=== PATIENT | female | born 1970 | race African-American/Black ===

== ENCOUNTER 2016-06-29 06:45 | Emergency (ER) | payer OTHER ==
[~2016-06-29] VITALS: Ht 170.2 cm; Wt 100.0 kg
[~2016-06-29 06:45] MED LIST: FERR325T PO; OVCOTAB PO; PHEN25IN PR; TAB-TAB PO
[2016-06-29 06:47] VITALS: BP 170/74; PULSE 87; RESP 15; TEMP 98.3; O2SAT 97
[2016-06-29 07:26] VITALS: BP 133/76; PULSE 82; RESP 18; O2SAT 99
--- NOTE | 2016-06-29 07:38 | PD ---
HPI Chief Complaint: Pain: Acute or Chronic Time Seen by Provider: 07:32 Travel History International Travel<30 days: No Contact w/Intl Traveler<30days: No Traveled to known affect area: No History of Present Illness HPI The patient is a 46-year-old Mary female who presents to the emergency department from [place], [place], for multiple complaints. The patient notes a 2 day history of chest pain which is substernal to left-sided, constant, heavy, and alleviated with Aleve. The pain has been constant, is present at rest and with activity, and is not accompanied with any shortness of breath. The patient also complains of cramping and numbness to the third, fourth, fifth digit of the left hand. The patient also complains of a headache located over the top of the head which started this morning after awakening. She also complains of mild epigastric discomfort and distention, however, has been eating without difficulty. Her last bowel movement was yesterday, normal per her report. She has been passing gas without difficulty. She does have a history of tubal ligation in the past and is currently on control for a history of heavy vaginal bleeding. The patient also complains of pain located over the left great toe without any swelling or edema. The patient denies any trauma to the left foot. The patient's primary physician is located in [place], however, she did not see her physician over the last several days for her multiple complaints. PFSH Past Medical History Anemia: Yes Asthma: Yes Cancer: No Cardiovascular Problems: No Endocrine: No Genitourinary: No Immune Disorder: No Implanted Vascular Access Dvce: No Musculoskeletal: No Neurologic: No Reproductive: No Respiratory: Yes (asthma) ?: Not : 4 Para: 4 Miscarriage: 0 : 0 Tubal Ligation: Yes Past Surgical History Abdominal Surgery: No Cardiac Surgery: No Ear Surgery: No Endocrine Surgery: No Eye Surgery: No Genitourinary Surgery: No Gynecologic Surgery: Yes (TUBAL LIGATION) Neurologic Surgery: No Oral Surgery: No Thoracic Surgery: No Other Surgery: Yes (CERVICAL BIOPSY) Social History Alcohol Use: No Tobacco Use: No Substance Use: No Allergies-Medications (Allergen,Severity, Reaction): Coded Allergies: No Known Allergies (Verified , 06/29/16) Reported Meds & Prescriptions Reported Meds & Active Scripts Active Review of Systems Except as stated in HPI: all other systems reviewed are Neg General / Constitutional: No: Fever HENT: Positive: Headaches Cardiovascular: Positive: Chest Pain or Discomfort Respiratory: No: Shortness of Breath Gastrointestinal: Positive: Abdominal Pain (epigastric discomfort and bloating) , No: Nausea, Vomiting, Constipation, Changes in Bowel Habits Musculoskeletal: Positive: Cramping, Pain Neurologic: Positive: Headache, Paresthesia Physical Exam Narrative GENERAL: Awake, alert, nontoxic-appearing 46-year-old female who appears her stated age and is in no acute respiratory distress. SKIN: Warm and dry. HEAD: Atraumatic. Normocephalic. EYES: Pupils equal and round. 3 mm bilateral and reactive. EOMs are intact. ENT: No nasal bleeding or discharge. Mucous membranes pink and moist. NECK: Trachea midline. No JVD. CARDIOVASCULAR: Regular rate and rhythm. No murmur appreciated. RESPIRATORY: No accessory muscle use. Clear to auscultation. Breath sounds equal bilaterally. GASTROINTESTINAL: Abdomen soft, mild epigastric tenderness. No rebound tenderness, guarding, or rigidity. No obvious tympany noted. MUSCULOSKELETAL: No obvious deformities. No clubbing. No cyanosis. No edema. NEUROLOGICAL: Awake and alert. No obvious cranial nerve deficits. Motor grossly within normal limits. Normal speech. PSYCHIATRIC: Appropriate mood and affect; insight and judgment normal. Data Data Last Documented VS Vital Signs Date Time Temp Pulse Resp B/P Pulse Ox O2 Delivery O2 Flow Rate FiO2 06/29/16 09:30 78 16 136/77 98 Room Air 06/29/16 06:47 98.3 Orders Electrocardiogram (06/29/16 07:32) Ckmb (Isoenzyme) Profile (06/29/16 07:32) Complete Blood Count With Diff (06/29/16 07:32) Comprehensive Metabolic Panel (06/29/16 07:32) Magnesium (Mg) (06/29/16 07:32) Prothrombin Time / Inr (Pt) (06/29/16 07:32) Act Partial Throm Time (Ptt) (06/29/16 07:32) Troponin I (06/29/16 07:32) Lipase (06/29/16 07:32) Chest, Single Ap (06/29/16 07:32) Ecg Monitoring (06/29/16 07:32) Bilateral Bp Monitoring (06/29/16 07:32) Iv Access Insert/Monitor (06/29/16 07:32) Oximetry (06/29/16 07:32) Oxygen Administration (06/29/16 07:32) Aspirin Chew (Aspirin Chew) (06/29/16 07:45) Morphine Inj (Morphine Inj) (06/29/16 07:45) Sodium Chloride 0.9% Flush (Ns Flush) (06/29/16 07:45) Ondansetron Inj (Zofran Inj) (06/29/16 07:45) CKMB (06/29/16 07:40) CKMB% (06/29/16 07:40) Troponin I (06/29/16 10:40) Labs Laboratory Tests Test 06/29/16 06/29/16 07:40 10:35 White Blood Count 7.4 TH/MM3 Red Blood Count 4.42 MIL/MM3 Hemoglobin 10.6 GM/DL Hematocrit 33.6 % Mean Corpuscular Volume 76.0 FL Mean Corpuscular Hemoglobin 24.0 PG Mean Corpuscular Hemoglobin 31.6 % Concent Red Cell Distribution Width 15.4 % Platelet Count 240 TH/MM3 Mean Platelet Volume 8.5 FL Neutrophils (%) (Auto) 48.6 % Lymphocytes (%) (Auto) 37.9 % Monocytes (%) (Auto) 10.9 % Eosinophils (%) (Auto) 1.7 % Basophils (%) (Auto) 0.9 % Neutrophils # (Auto) 3.6 TH/MM3 Lymphocytes # (Auto) 2.8 TH/MM3 Monocytes # (Auto) 0.8 TH/MM3 Eosinophils # (Auto) 0.1 TH/MM3 Basophils # (Auto) 0.1 TH/MM3 CBC Comment AUTO DIFF Differential Comment AUTO DIFF CONFIRMED Platelet Estimate NORMAL Platelet Morphology Comment ENLARGED Prothrombin Time 9.6 SEC Prothromb Time International 0.9 RATIO Ratio Activated Partial 26.1 SEC Thromboplast Time Sodium Level 138 MEQ/L Potassium Level 3.6 MEQ/L Chloride Level 104 MEQ/L Carbon Dioxide Level 27.5 MEQ/L Anion Gap 7 MEQ/L Blood Urea Nitrogen 8 MG/DL Creatinine 0.80 MG/DL Estimat Glomerular Filtration 94 ML/MIN Rate Random Glucose 82 MG/DL Calcium Level 8.2 MG/DL Magnesium Level 2.2 MG/DL Total Bilirubin 0.2 MG/DL Aspartate Amino Transf 11 U/L (AST/SGOT) Alanine Aminotransferase 10 U/L (ALT/SGPT) Alkaline Phosphatase 99 U/L Total Creatine Kinase 159 U/L Creatine Kinase MB 0.9 NG/ML Troponin I LESS THAN 0.02 LESS THAN 0.02 NG/ML NG/ML Total Protein 7.3 GM/DL Albumin 3.0 GM/DL Lipase 139 U/L MDM Medical Decision Making Medical Screen Exam Complete: Yes Emergency Medical Condition: Yes Medical Record Reviewed: Yes Interpretation(s) EKG reveals normal sinus rhythm with a rate of 77. Wavy baseline in V1. Inverted T waves noted in lead 3. Laboratory Tests Test 06/29/16 07:40 White Blood Count 7.4 TH/MM3 Red Blood Count 4.42 MIL/MM3 Hemoglobin 10.6 GM/DL Hematocrit 33.6 % Mean Corpuscular Volume 76.0 FL Mean Corpuscular Hemoglobin 24.0 PG Mean Corpuscular Hemoglobin 31.6 % Concent Red Cell Distribution Width 15.4 % Platelet Count 240 TH/MM3 Mean Platelet Volume 8.5 FL Neutrophils (%) (Auto) 48.6 % Lymphocytes (%) (Auto) 37.9 % Monocytes (%) (Auto) 10.9 % Eosinophils (%) (Auto) 1.7 % Basophils (%) (Auto) 0.9 % Neutrophils # (Auto) 3.6 TH/MM3 Lymphocytes # (Auto) 2.8 TH/MM3 Monocytes # (Auto) 0.8 TH/MM3 Eosinophils # (Auto) 0.1 TH/MM3 Basophils # (Auto) 0.1 TH/MM3 CBC Comment AUTO DIFF Differential Comment AUTO DIFF CONFIRMED Platelet Estimate NORMAL Platelet Morphology Comment ENLARGED Prothrombin Time 9.6 SEC Prothromb Time International 0.9 RATIO Ratio Activated Partial 26.1 SEC Thromboplast Time Sodium Level 138 MEQ/L Potassium Level 3.6 MEQ/L Chloride Level 104 MEQ/L Carbon Dioxide Level 27.5 MEQ/L Anion Gap 7 MEQ/L Blood Urea Nitrogen 8 MG/DL Creatinine 0.80 MG/DL Estimat Glomerular Filtration 94 ML/MIN Rate Random Glucose 82 MG/DL Calcium Level 8.2 MG/DL Magnesium Level 2.2 MG/DL Total Bilirubin 0.2 MG/DL Aspartate Amino Transf 11 U/L (AST/SGOT) Alanine Aminotransferase 10 U/L (ALT/SGPT) Alkaline Phosphatase 99 U/L Total Creatine Kinase 159 U/L Creatine Kinase MB 0.9 NG/ML Troponin I LESS THAN 0.02 NG/ML Total Protein 7.3 GM/DL Albumin 3.0 GM/DL Lipase 139 U/L Last Impressions Chest X-Ray 06/29/16 0732 Signed Impressions: Service Date/Time: Wednesday, June 29, 2016 07:42 - CONCLUSION: No acute disease. Kvng uRiz MD Second troponin is less than 0.02. Differential Diagnosis Differential diagnosis includes ACS, hypokalemia, electrolyte abnormality, pancreatitis, GERD, esophageal spasm, arthralgia, osteoarthritis, gout, tension headache, intracranial hemorrhage, subarachnoid hemorrhage. Narrative Course IV was established, labs are drawn and sent, and the patient was placed on cardiac telemetry monitoring and continuous pulse oximetry monitoring. EKG was ordered and interpreted. Chest x-ray was obtained. The patient was administered aspirin, morphine, and Zofran. The patient's chest x-rays unremarkable. The patient's lipase and LFTs are normal. Troponin is negative. The patient's symptoms are very atypical, patient has no known risk factors. Therefore, second troponin will be ordered at that 3 hour level. The patient does have multiple complaints, no obvious explanation that explains the headache , chest pain, cramping of the hands, or toe pain. The patient is stable for outpatient follow-up with her primary physician, she will be provided a copy of chest x-ray and labs at discharge. The patient was reevaluated at 10:15 AM, she still had mild headache, I offered Toradol intravenously, however, she declined. The patient's second troponin is negative. The patient will be discharged home with a copy of labs and chest x- ray report. Diagnosis Primary Impression: Atypical chest pain Additional Impressions: Cephalgia Qualified Code: R51 - Acute nonintractable headache, unspecified headache type Foot pain, left Patient Instructions: General Instructions Additional Instructions: Please provide the patient a copy of her labs and chest x-ray report at discharge. Follow-up with your primary physician. Return if symptoms worsen or progress. Med/Other Pt SpecificInfo: Prescription(s) given Scripts Ibuprofen 600 Mg Hig639 Mg PO Q6H PRN (Pain/Inflammation) #20 TAB Ref 0 Prov:Jaleel Medina MD 06/29/16 Disposition: 01 DISCHARGE HOME Condition: Stable Jaleel Medina MD Jun 29, 2016 07:38
[2016-06-29] MEDS ORDERED: SODIUM CHLORIDE 0.9% FLUSH 5 ML FLUSH IVF PRN (07:45)
[2016-06-29] MEDS ORDERED: ONDANSETRON HCL 4 MG/2 ML VIAL IV PUSH ONE (07:45)
[2016-06-29] MEDS ORDERED: ASPIRIN 81 MG CHEW TAB PO ONE (07:45)
[2016-06-29] MEDS ORDERED: MORPHINE SULFATE 4 MG/ML INJ IV PUSH ONE (07:45)
--- NOTE | 2016-06-29 08:16 | RADRPT ---
EXAM DATE/TIME: 06/29/2016 07:42 [facility] COMPARISON: No previous studies available for comparison. INDICATIONS : Short of Breath and Chest Pressure MEDICAL HISTORY : Asthma SURGICAL HISTORY : None. ENCOUNTER: Initial ACUITY: 1 day PAIN SCORE: 4/10 LOCATION: Bilateral chest FINDINGS: A single view of the chest demonstrates the lungs to be symmetrically aerated without evidence of mas s, infiltrate or effusion. The cardiomediastinal contours are unremarkable. Osseous structures are intact. CONCLUSION: No acute disease. Kvng Ruiz MD on June 29, 2016 at 8:14 Board Certified Radiologist. This report was verified electronically.
[2016-06-29 08:24] LABS: AUTOMATED NEUTROPHIL # 3.6 TH/MM3 (1.8-7.7); BASOPHIL # 0.1 TH/MM3 (0-0.2); BASOPHIL % 0.9 % (0.0-2.0); EOSINOPHIL # 0.1 TH/MM3 (0-0.4); EOSINOPHIL % 1.7 % (0.0-4.0); HEMATOCRIT 33.6 % (35.0-46.0); LYMPH % 37.9 % (9.0-44.0); LYMPHOCYTE # 2.8 TH/MM3 (1.0-4.8); MEAN CORPUSCULAR HGB CONC 31.6 % (32.0-36.0); MONO % 10.9 % (0.0-8.0); NEUT % 48.6 % (16.0-70.0); PLATELET COUNT 240 TH/MM3 (150-450); RED BLOOD COUNT 4.42 MIL/MM3 (4.00-5.30); RED CELL DISTRIBUTION WIDTH 15.4 % (11.6-17.2); WHITE BLOOD COUNT 7.4 TH/MM3 (4.0-11.0)
[2016-06-29 08:26] LABS: HEMO FLAGS AUTO DIFF
[2016-06-29 08:30] VITALS: BP_SYST 133; BP_SYST 136; BP_DIAS 67; BP_DIAS 77; PULSE 78; RESP 18; O2SAT 97
[2016-06-29 08:31] LABS: APTT (PATIENT) 26.1 SEC (24.3-30.1); INTERNATIONAL NORMALIZED RATIO 0.9 RATIO; PROTHROMBIN TIME - PATIENT 9.6 SEC (9.8-11.6)
[2016-06-29 08:50] LABS: ANION GAP 7 MEQ/L (5-15); AST (GOT) 11 U/L (15-37); BICARBONATE 27.5 MEQ/L (21.0-32.0); BLOOD UREA NITROGEN 8 MG/DL (7-18); CHLORIDE 104 MEQ/L (98-107); GLOMERULAR FILTRATION RATE 94 ML/MIN (>89); MAGNESIUM 2.2 MG/DL (1.5-2.5); POTASSIUM 3.6 MEQ/L (3.5-5.1); SODIUM (NA) 138 MEQ/L (136-145)
[2016-06-29 08:55] LABS: ALKALINE PHOSPHATASE 99 U/L (45-117); ALT (GPT) 10 U/L (10-53); CREATINE KINASE 159 U/L (26-192); TOTAL BILIRUBIN ADULT 0.2 MG/DL (0.2-1.0)
[2016-06-29 09:06] LABS: PLATELET ESTIMATE SMEAR NORMAL (NORMAL); PLATELET MORPHOLOGY ENLARGED (NORMAL); SCAN/DIFF AUTO DIFF CONFIRMED
[2016-06-29 09:07] LABS: CKMB 0.9 NG/ML (0.5-3.6)
--- NOTE | 2016-06-29 09:19 | EKG ---
Date Performed: 06/29/2016 Time Performed: 07:47:23 PTAGE: 46 years EKG: Marked Baseline artifact is present. I would repeat the EKG given the poor quality. PREVIOUS TRACING : 02/08/2013 13.36 DOCTOR: Brandon Holly Interpretating Date/Time 06/29/2016 09:18:36
[2016-06-29 09:30] VITALS: BP 136/77; PULSE 78; RESP 16; O2SAT 98
[2016-06-29] MEDS ORDERED: IBUP-232 PO (11:33)
[2016-06-29 12:07] VITALS: BP 114/62
== END 2016-06-29 12:09 | disposition home or self-care (01) ==
LOC: NEPE 06:45
DX: R07.89 Other chest pain (principal); R51 Headache; M79.675 Pain in left toe(s); R10.13 Epigastric pain; R14.0 Abdominal distension (gaseous)
CPT/HCPCS: 71010; 80053; 82550; 82552; 83690; 83735; 84484; 85025; 85610; 85730; 93005; 96374; 96375; 99285; J2270; J2405

== ENCOUNTER 2017-12-21 11:10 | Observation (INO) ==
--- NOTE | 2017-12-21 12:05 | ED ---
HPI General Chief Complaint: Extremity Injury, Upper Stated Complaint: pain in right shoulder & left arm Time Seen by Provider: 12/21/17 11:48 Source: patient and RN notes reviewed Mode of arrival: ambulatory Limitations: no limitations History of Present Illness HPI narrative: 47-year-old female presents to the emergency department for evaluation of left arm pain and left-sided chest pain. Patient states she started with left arm pain approximately 1 week ago. She states it started sharp and radiated down the arm. She states that then she started noticing some left-sided discomfort. Patient denies any injury. She states the pain is not worse with movement. She denies any history of similar pain in the past. She denies shortness of breath. She also complains of right shoulder pain for 2 weeks. States she had a knot in her right shoulder and this pain is worse when she moves her right arm. Patient reports history of asthma. She is on albuterol and control pills. She denies any cardiac history. Current pain is 8/10. Moderate severity. Patient does state that Tylenol will help her left arm pain. MD complaint: chest pain (Arm pain) Complete Quality Measures for STEMI Alert Patients Onset (ago): week(s) (1) Duration: constant Onset: during rest Pain location: other (left arm) Severity: moderate Severity scale (1-10): 8 Quality: aching and sharp Pain radiation: other Relieving factors: medication-other (Tylenol) Exacerbating factors: nothing Treatments prior to arrival chest pain: none Related Data Home Medications Medication Instructions Recorded Confirmed Control 12/21/17 Allergies Allergy/AdvReac Type Severity Reaction Status Date / Time No Known Allergies Allergy Uncoded 06/29/16 07:28 Review of Systems ROS: all other systems reviewed are negative PMFSH Medical History Medical History Asthma (Acute) Disc degeneration, lumbar (Acute) Surgical History Surgical History H/O tubal ligation (Acute) Social History Social History Substance History: No History of Abuse Smoking Status: Never smoker How Often Do You Have a Drink Containing Alcohol: Monthly or less Recent Travel in [facility] within the Last 8 Weeks: No Recent Out of Country Travel within the Last 8 Weeks: No Immunization History Tetanus Immunization: >5 Years Exam Narrative Exam Narrative: GENERAL: Well-nourished, well-developed female patient, afebrile SKIN: Focused skin assessment warm/dry. HEAD: Normocephalic. Atraumatic EYES: No scleral icterus. No injection or drainage. NECK: Supple, trachea midline. No JVD or lymphadenopathy. CARDIOVASCULAR: Regular rate and rhythm without murmurs, gallops, or rubs. Bilateral radial and pedal pulses 2+ RESPIRATORY: Breath sounds equal bilaterally. No accessory muscle use. Lung sounds are clear to auscultation GASTROINTESTINAL: Abdomen soft, non-tender, nondistended. MUSCULOSKELETAL: No cyanosis, or edema. Pain in the left arm is not reproducible with palpation or range of motion. Pain right shoulder is easily reproduced with palpation and lifting the right arm. BACK: Nontender without obvious deformity. No CVA tenderness. NEUROLOGICAL: Awake and alert. Cranial nerves II through XII intact. Motor and sensory grossly within normal limits. Five out of 5 muscle strength in all muscle groups. Normal speech. Course Initial Documented Vital Signs Temperature 98.7 F 12/21/17 11:19 Pulse Rate 90 12/21/17 11:19 Respiratory Rate 16 12/21/17 11:19 Blood Pressure 175/80 H 12/21/17 11:19 Pulse Oximetry 99 12/21/17 11:19 Last Documented Vital Signs Temperature 98.7 F 12/21/17 11:19 Pulse Rate 87 12/21/17 11:20 Respiratory Rate 19 12/21/17 11:20 Blood Pressure 125/79 12/21/17 11:20 Pulse Oximetry 98 12/21/17 12:10 Medical Decision Making PALMER Attestation PALMER supervised visit: Yes Attestation: I, Dr. Galan, have reviewed the advance practice practitioner's documentation and am in agreement, met with the patient face to face, made the diagnosis, and the medical decision making was done by me. *My assessment and Findings: Patient had some atypical chest discomfort. Workup here is negative. Patient will be a 23-hour observation on telemetry in the chest pain center to rule out cardiac cause of her symptoms. MDM Narrative Medical decision making narrative: 47-year-old female presents to the emergency department for evaluation of left arm pain for 1 week. She also states she has some left chest "discomfort". She also has right shoulder pain for 2 weeks that is reproducible with movement. She does appear well on exam. Due to nonspecific symptoms, cardiac workup should be done. IV access obtained. EKG, CBC, CMP, CK, troponin, magnesium, d-dimer, chest x-ray are ordered and pending. Patient is given aspirin 162 mg p.o. EKG sinus rhythm, heart rate 78 with inverted T waves in lead III. CBC shows no acute abnormality. CMP shows no acute abnormality. Magnesium is 2.2. CK is 124. Troponin is less than 0.02. D-dimer is 0.22. Chest x-ray is negative. I discussed the case my attending physician, Dr. Galan, who reviewed EKG. he recommends chest pain center admission. I discussed this with the patient who states she does not want to stay. She is thinking about at this time. Patient has agreed to be admitted for chest pain center Medical Screen Exam Complete: Yes Emergency Medical Condition: Yes Differential Diagnosis Differential Diagnosis: cervical radiculopathy vs. ACS vs. muscle strain vs. muscle spasm vs. PE Lab Data Result diagrams: 12/21/17 12:08 12/21/17 12:08 POC Results POC Urine Results Negative Lab Results 12/21/17 12/21/17 12/21/17 Range/Units 12:08 12:08 12:08 WBC 6.2 (4.0-11.0) th/mm3 RBC 4.53 (4.00-5.30) mil/mm3 Hgb 11.0 L (11.6-15.3) gm/dL Hct 35.2 (35.0-46.0) % MCV 77.8 L (80.0-100.0) fL MCH 24.2 L (27.0-34.0) pg MCHC 31.1 L (32.0-36.0) % RDW 15.8 (11.6-17.2) % Plt Count 248 (150-450) th/mm3 MPV 7.8 (7.0-11.0) fL Neut % (Auto) 55.1 (16.0-70.0) % Lymph % (Auto) 33.8 (9.0-44.0) % Grant % (Auto) 8.8 H (0.0-8.0) % Eos % (Auto) 1.2 (0.0-4.0) % Baso % (Auto) 1.1 (0.0-2.0) % Neut # (Auto) 3.4 (1.8-7.7) th/mm3 Lymph # (Auto) 2.1 (1.0-4.8) th/mm3 Grant # (Auto) 0.5 (0.0-0.9) th/mm3 Eos # (Auto) 0.1 (0.0-0.4) th/mm3 Baso # (Auto) 0.1 (0.0-0.2) th/mm3 WBC Differential . Differential Comment Auto diff final D-Dimer Quant (PE/DVT) 0.22 (0.00-0.50) mg/L FEU Sodium 142 (136-145) meq/L Potassium 4.2 (3.5-5.1) meq/L Chloride 107 (98-107) meq/L Carbon Dioxide 28.6 (21.0-32.0) meq/L Anion Gap 6 (5-15) meq/L BUN 8 (7-18) mg/dL Creatinine 0.77 (0.50-1.00) mg/dL Estimated GFR Greater than 89 (>89) mL/min Random Glucose 85 (74-106) mg/dL Calcium 8.3 L (8.5-10.1) mg/dL Magnesium (1.5-2.5) mg/dL Total Bilirubin 0.3 (0.2-1.0) mg/dL AST 10 L (15-37) U/L ALT 11 (10-53) U/L Alkaline Phosphatase 114 (45-117) U/L Total Creatine Kinase (26-192) U/L CK-MB (CK-2) (0.5-3.6) ng/mL Troponin I Less than 0.02 L (0.02-0.05) ng/mL Total Protein 7.6 (6.4-8.2) g/dL Albumin 3.3 L (3.4-5.0) g/dL 12/21/17 Range/Units 12:08 WBC (4.0-11.0) th/mm3 RBC (4.00-5.30) mil/mm3 Hgb (11.6-15.3) gm/dL Hct (35.0-46.0) % MCV (80.0-100.0) fL MCH (27.0-34.0) pg MCHC (32.0-36.0) % RDW (11.6-17.2) % Plt Count (150-450) th/mm3 MPV (7.0-11.0) fL Neut % (Auto) (16.0-70.0) % Lymph % (Auto) (9.0-44.0) % Grant % (Auto) (0.0-8.0) % Eos % (Auto) (0.0-4.0) % Baso % (Auto) (0.0-2.0) % Neut # (Auto) (1.8-7.7) th/mm3 Lymph # (Auto) (1.0-4.8) th/mm3 Grant # (Auto) (0.0-0.9) th/mm3 Eos # (Auto) (0.0-0.4) th/mm3 Baso # (Auto) (0.0-0.2) th/mm3 WBC Differential Differential Comment D-Dimer Quant (PE/DVT) (0.00-0.50) mg/L FEU Sodium (136-145) meq/L Potassium (3.5-5.1) meq/L Chloride (98-107) meq/L Carbon Dioxide (21.0-32.0) meq/L Anion Gap (5-15) meq/L BUN (7-18) mg/dL Creatinine (0.50-1.00) mg/dL Estimated GFR (>89) mL/min Random Glucose (74-106) mg/dL Calcium (8.5-10.1) mg/dL Magnesium 2.2 (1.5-2.5) mg/dL Total Bilirubin (0.2-1.0) mg/dL AST (15-37) U/L ALT (10-53) U/L Alkaline Phosphatase (45-117) U/L Total Creatine Kinase 124 (26-192) U/L CK-MB (CK-2) Less than 1.0 (0.5-3.6) ng/mL Troponin I (0.02-0.05) ng/mL Total Protein (6.4-8.2) g/dL Albumin (3.4-5.0) g/dL Imaging Data Radiologist's impression: Chest X-Ray 12/21/17 11:58 CONCLUSION: Negative examination. Discharge Plan Discharge Disposition Patient Disposition: 30 Still Patient Discharge Details Diagnosis: Chest pain Physicians Team ED Provider: Andrew Galan ED Midlevel Provider: Zo Boyd Attending Provider: Rosendo Armstrong Status ED Status: Admitted Observation Patient
[2017-12-21 12:18] LABS: Baso # (Auto) 0.1 th/mm3 (0.0-0.2); Baso % (Auto) 1.1 % (0.0-2.0); Eos # (Auto) 0.1 th/mm3 (0.0-0.4); Eos % (Auto) 1.2 % (0.0-4.0); Hematocrit 35.2 % (35.0-46.0); Lymph # (Auto) 2.1 th/mm3 (1.0-4.8); Lymph % (Auto) 33.8 % (9.0-44.0); Mean Corpuscular HGB Conc 31.1 % (32.0-36.0); Mean Corpuscular Hemoglobin 24.2 pg (27.0-34.0); Mean Corpuscular Volume 77.8 fL (80.0-100.0); Mean Platelet Volume 7.8 fL (7.0-11.0); Mono # (Auto) 0.5 th/mm3 (0.0-0.9); Mono % (Auto) 8.8 % (0.0-8.0); Neut # (Auto) 3.4 th/mm3 (1.8-7.7); Neut % (Auto) 55.1 % (16.0-70.0); Platelet Count 248 th/mm3 (150-450); Red Blood Count 4.53 mil/mm3 (4.00-5.30); Red Cell Distribution Width 15.8 % (11.6-17.2); White Blood Count 6.2 th/mm3 (4.0-11.0)
--- NOTE | 2017-12-21 12:33 | XR ---
EXAM DATE: 12/21/2017 12:25 PM EDT AGE/SEX: 47 years / Female INDICATIONS: Right shoulder pain for 2 weeks, left shoulder pain for one week radiating down left ar m. CLINICAL DATA: This is the patient's initial encounter. Patient reports that signs and symptoms have been present for 2 weeks and indicates a pain score of 5/10. MEDICAL/SURGICAL HISTORY: Asthma. None. COMPARISON: June 2016 . FINDINGS: A single AP view of the chest demonstrates the lungs to be symmetrically aerated without evidence of mass, infiltrate or effusion. The cardiomediastinal contours are unremarkable. Osseous structures a re intact. CONCLUSION: Negative examination. Electronically signed by: Yeyo Rodríguez MD 12/21/2017 12:31 PM EDT
[2017-12-21 12:38] LABS: Alanine Aminotransferase 11 U/L (10-53); Albumin 3.3 g/dL (3.4-5.0); Anion Gap 6 meq/L (5-15); Aspartate Aminotransferase 10 U/L (15-37); Blood Urea Nitrogen 8 mg/dL (7-18); Calcium 8.3 mg/dL (8.5-10.1); Carbon Dioxide 28.6 meq/L (21.0-32.0); Chloride 107 meq/L (98-107); Glomerular Filtration Rate Greater Than 89 mL/min (>89); Glucose,Random 85 mg/dL (74-106); Magnesium 2.2 mg/dL (1.5-2.5); Potassium 4.2 meq/L (3.5-5.1); Sodium 142 meq/L (136-145)
[2017-12-21 12:40] LABS: Creatine Kinase 124 U/L (26-192)
[2017-12-21 12:42] LABS: Alkaline Phosphatase 114 U/L (45-117); Total Protein 7.6 g/dL (6.4-8.2)
--- NOTE | 2017-12-21 14:20 | P.HPCA ---
History of Present Illness Primary Care Physician: Levi oGnzalez [facility] - History History Provided By: Patient - Medical History Medical History: Medical History (Last Updated 12/21/17 @ 11:28 by Brenda Sheikh RN) Asthma Disc degeneration, lumbar - Surgical History Surgical History: Surgical History (Last Updated 12/21/17 @ 11:28 by Brenda Sheikh RN) H/O tubal ligation - Tobacco History Smoking Status: Never smoker - Alcohol History How Often Do You Have a Drink Containing Alcohol: Monthly or less - Substance Use History Substance History: No History of Abuse - Travel History Recent Travel in the [facility] Within the Last 8 Weeks: No Recent Travel Out of the Country Within the Last 8 Weeks: No - Immunization History Tetanus Immunization: >5 Years Medications and Allergies Active Medications: Active Medications Sodium Chloride (Ns Flush) 2 ml IV.FLUSH UNSCH PRN PRN Reason: FLUSH AFTER USING IV ACCESS Sodium Chloride (Ns Flush) 2 ml IV.FLUSH BID LETTY Allergies Allergy/AdvReac Type Severity Reaction Status Date / Time No Known Allergies Allergy Uncoded 06/29/16 07:28 Home Medications Medication Instructions Recorded Confirmed Type Control 12/21/17 History Exam Vital signs: Vital Signs 12/21/17 11:19 12/21/17 11:20 12/21/17 12:10 Temperature 98.7 F Pulse Rate 90 87 Respiratory Rate 16 19 Blood Pressure 175/80 H 125/79 Pulse Oximetry 99 98 98 Intake & Output 12/20/17 12/21/17 12/21/17 18:59 06:59 18:59 Weight 106.594 kg Results 12/21/17 12:08 12/21/17 12:08 Cardiac Enzymes 12/21/17 12/21/17 Range/Units 12:08 12:08 AST 10 L (15-37) U/L CK-MB (CK-2) Less than 1.0 (0.5-3.6) ng/mL Troponin I Less than 0.02 L (0.02-0.05) ng/mL CBC 12/21/17 Range/Units 12:08 WBC 6.2 (4.0-11.0) th/mm3 RBC 4.53 (4.00-5.30) mil/mm3 Hgb 11.0 L (11.6-15.3) gm/dL Hct 35.2 (35.0-46.0) % Plt Count 248 (150-450) th/mm3 Neut # (Auto) 3.4 (1.8-7.7) th/mm3 Lymph # (Auto) 2.1 (1.0-4.8) th/mm3 [place] # (Auto) 0.5 (0.0-0.9) th/mm3 Eos # (Auto) 0.1 (0.0-0.4) th/mm3 Baso # (Auto) 0.1 (0.0-0.2) th/mm3 Comprehensive Metabolic Panel 12/21/17 Range/Units 12:08 Sodium 142 (136-145) meq/L Potassium 4.2 (3.5-5.1) meq/L Chloride 107 (98-107) meq/L Carbon Dioxide 28.6 (21.0-32.0) meq/L BUN 8 (7-18) mg/dL Creatinine 0.77 (0.50-1.00) mg/dL Calcium 8.3 L (8.5-10.1) mg/dL AST 10 L (15-37) U/L ALT 11 (10-53) U/L Alkaline Phosphatase 114 (45-117) U/L Total Protein 7.6 (6.4-8.2) g/dL Albumin 3.3 L (3.4-5.0) g/dL Intake and Output 12/20/17 12/21/17 12/21/17 22:59 06:59 14:59 Other: Weight 106.594 kg Patient Weight 12/22/17 06:59 Weight 106.594 kg Caprini VTE Risk Assessment Caprini Risk Assessment Model: Point Value = 1 Point Value = 2 Point Value = 3 Point Value = 5 Age 41-60 Minor surgery BMI > 25 kg/m2 Swollen legs Varicose veins or History of unexplained or recurrent spontaneous Oral contraceptives or hormone replacement Sepsis (< 1 month) Serious lung disease, including pneumonia (< 1 month) Abnormal pulmonary function Acute myocardial infarction Congestive heart failure (< 1 month) History of inflammatory bowel disease Medical patient at bed rest Age 61-74 Arthroscopic surgery Major open surgery (> 45 min) Laparoscopic surgery (> 45 min) Malignancy Confined to bed (> 72 hours) Immobilizing plaster cast Central venous access Age >= 75 History of VTE Family history of VTE Factor V Leiden Prothrombin [id number] Lupus anticoagulant Anticardiolipin antibodies Elevated serum homocysteine Heparin-induced thrombocytopenia Other congenital or acquired thrombophilia Stroke (< 1 month) Elective arthroplasty Hip, pelvis, or leg fracture Acute spinal cord injury (< 1 month) Prophylaxis Regimen: Total Risk Factor Score Risk Level Prophylaxis Regimen 0-1 Low Early ambulation 2 Moderate Order ONE of the following: *Sequential Compression Device (SCD) *Heparin 5000 units SQ BID 3-4 Higher Order ONE of the following medications: *Heparin 5000 units SQ TID *Enoxaparin/Lovenox 40 mg SQ daily (WT < 150 kg, CrCl > 30 mL/min) *Enoxaparin/Lovenox 30 mg SQ daily (WT < 150 kg, CrCl > 10-29 mL/min) *Enoxaparin/Lovenox 30 mg SQ BID (WT < 150 kg, CrCl > 30 mL/min) AND/OR *Sequential Compression Device (SCD) 5 or more Highest Order ONE of the following medications: *Heparin 5000 units SQ TID (Preferred with Epidurals) *Enoxaparin/Lovenox 40 mg SQ daily (WT < 150 kg, CrCl > 30 mL/min) *Enoxaparin/Lovenox 30 mg SQ daily (WT < 150 kg, CrCl > 10-29 mL/min) *Enoxaparin/Lovenox 30 mg SQ BID (WT < 150 kg, CrCl > 30 mL/min) AND *Sequential Compression Device (SCD)
--- NOTE | 2017-12-21 14:44 | P.HPCA ---
History of Present Illness Service: Chest pain center Primary Care Physician: Levi Gonzalez Chief Complaint: Left and right arm pain and weakness History of Present Illness: Very pleasant 47-year-old moderately obese black lady who works as a SENIOR TECHNICAL ANALYST at [employer] presents with complaints of left arm and shoulder pain with some radiation into the left upper chest. This began a couple weeks ago when she was sitting in a reclining chair and use both of her arms to push herself up in the chair. Subsequently she noted burning pain in her left arm and after that some slight pain in her right arm as well. This pain has persisted constantly since that time although it does fluctuate somewhat in severity from about 5 out of 10 to an 8 or 9 out of 10. It is not precipitated by exertion or relieved by rest but it can be relieved if she positioned herself carefully in bed so that her back is straight. She also notices that positioning her pillow in certain ways does relieve some of the discomfort. Along with the pain she has some numbness and weakness of her left arm and hand. She is also been having trouble with her low back and recently was evaluated with an MRI and told that she has this degeneration and some spinal stenosis but they did not evaluate her upper spine. She has no other associated symptoms no diaphoresis nausea shortness of breath no other precipitating or relieving factors and no radiation. 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 She has been employed with her current employer for 13 years. She has no other significant medical problems although she was evaluated previously for some anemia from [employer]OL [employer]OR bleeding but this appears to be stabilized at this time and she has had no further problems. Her only risk factor for coronary disease appears to be her weight. - Diagnosis (1) Upper extremity pain (2) Asthma (3) Chest pain Review of Systems All other systems reviewed negative except as stated in HPI ON LICENSE OF [facility] - History History Provided By: Patient - Medical History Medical History: Medical History (Last Updated 12/21/17 @ 11:28 by Brenda Sheikh RN) Asthma Disc degeneration, lumbar - Surgical History Surgical History: Surgical History (Last Updated 12/21/17 @ 11:28 by Brenda Sheikh RN) H/O tubal ligation - Tobacco History Smoking Status: Never smoker - Alcohol History How Often Do You Have a Drink Containing Alcohol: Monthly or less - Substance Use History Substance History: No History of Abuse - Travel History Recent Travel in the [place] Within the Last 8 Weeks: No Recent Travel Out of the Country Within the Last 8 Weeks: No - Immunization History Tetanus Immunization: >5 Years Medications and Allergies Active Medications: Active Medications Sodium Chloride (Ns Flush) 2 ml IV.FLUSH UNSCH PRN PRN Reason: FLUSH AFTER USING IV ACCESS Sodium Chloride (Ns Flush) 2 ml IV.FLUSH BID LETTY Allergies Allergy/AdvReac Type Severity Reaction Status Date / Time No Known Allergies Allergy Uncoded 06/29/16 07:28 Home Medications Medication Instructions Recorded Confirmed Type Control 12/21/17 History Exam Vital signs: Vital Signs 12/21/17 11:19 12/21/17 11:20 12/21/17 12:10 Temperature 98.7 F Pulse Rate 90 87 Respiratory Rate 16 19 Blood Pressure 175/80 H 125/79 Pulse Oximetry 99 98 98 Intake & Output 12/20/17 12/21/17 12/21/17 18:59 06:59 18:59 Weight 106.594 kg Narrative: Awake alert black moderately obese female Skin warm and dry Head normocephalic atraumatic wearing a week but here reported as normal texture Eyes PERRLA EOMI sclera clear conjunctiva unremarkable Mouth mucous membranes moist and well papillated no lesions Neck supple no JVD masses nodes or bruits Chest diminished breath sounds due to her obesity but auscultation otherwise unremarkable with no rales wheezes or rhonchi Cardiovascular PMI is not palpable there is a regular rhythm no gallops rubs or murmurs Abdomen is obese soft nontender no guarding rebound no hepatosplenomegaly is noted Extremities no clubbing cyanosis or edema no pain swelling or heat Neurologic cranial nerves are intact however upper left extremity is weak compared to right. Right is 5 out of 5 left 4 out of 5 strength proximally and distally. Psychologically she appears to be intact and normal with normal affect mood Results 12/21/17 12:08 12/21/17 12:08 Cardiac Enzymes 12/21/17 12/21/17 Range/Units 12:08 12:08 AST 10 L (15-37) U/L CK-MB (CK-2) Less than 1.0 (0.5-3.6) ng/mL Troponin I Less than 0.02 L (0.02-0.05) ng/mL CBC 12/21/17 Range/Units 12:08 WBC 6.2 (4.0-11.0) th/mm3 RBC 4.53 (4.00-5.30) mil/mm3 Hgb 11.0 L (11.6-15.3) gm/dL Hct 35.2 (35.0-46.0) % Plt Count 248 (150-450) th/mm3 Neut # (Auto) 3.4 (1.8-7.7) th/mm3 Lymph # (Auto) 2.1 (1.0-4.8) th/mm3 [place] # (Auto) 0.5 (0.0-0.9) th/mm3 Eos # (Auto) 0.1 (0.0-0.4) th/mm3 Baso # (Auto) 0.1 (0.0-0.2) th/mm3 Comprehensive Metabolic Panel 12/21/17 Range/Units 12:08 Sodium 142 (136-145) meq/L Potassium 4.2 (3.5-5.1) meq/L Chloride 107 (98-107) meq/L Carbon Dioxide 28.6 (21.0-32.0) meq/L BUN 8 (7-18) mg/dL Creatinine 0.77 (0.50-1.00) mg/dL Calcium 8.3 L (8.5-10.1) mg/dL AST 10 L (15-37) U/L ALT 11 (10-53) U/L Alkaline Phosphatase 114 (45-117) U/L Total Protein 7.6 (6.4-8.2) g/dL Albumin 3.3 L (3.4-5.0) g/dL Intake and Output 12/20/17 12/21/17 12/21/17 22:59 06:59 14:59 Other: Weight 106.594 kg Patient Weight 12/22/17 06:59 Weight 106.594 kg EKG interpretations - EKG EKG results cardiology: WNL Caprini VTE Risk Assessment Caprini VTE Risk Assessment: No/Low Risk (score <= 1) Caprini Risk Assessment Model: Point Value = 1 Point Value = 2 Point Value = 3 Point Value = 5 Age 41-60 Minor surgery BMI > 25 kg/m2 Swollen legs Varicose veins or History of unexplained or recurrent spontaneous Oral contraceptives or hormone replacement Sepsis (< 1 month) Serious lung disease, including pneumonia (< 1 month) Abnormal pulmonary function Acute myocardial infarction Congestive heart failure (< 1 month) History of inflammatory bowel disease Medical patient at bed rest Age 61-74 Arthroscopic surgery Major open surgery (> 45 min) Laparoscopic surgery (> 45 min) Malignancy Confined to bed (> 72 hours) Immobilizing plaster cast Central venous access Age >= 75 History of VTE Family history of VTE Factor V Leiden Prothrombin [id number] Lupus anticoagulant Anticardiolipin antibodies Elevated serum homocysteine Heparin-induced thrombocytopenia Other congenital or acquired thrombophilia Stroke (< 1 month) Elective arthroplasty Hip, pelvis, or leg fracture Acute spinal cord injury (< 1 month) Prophylaxis Regimen: Total Risk Factor Score Risk Level Prophylaxis Regimen 0-1 Low Early ambulation 2 Moderate Order ONE of the following: *Sequential Compression Device (SCD) *Heparin 5000 units SQ BID 3-4 Higher Order ONE of the following medications: *Heparin 5000 units SQ TID *Enoxaparin/Lovenox 40 mg SQ daily (WT < 150 kg, CrCl > 30 mL/min) *Enoxaparin/Lovenox 30 mg SQ daily (WT < 150 kg, CrCl > 10-29 mL/min) *Enoxaparin/Lovenox 30 mg SQ BID (WT < 150 kg, CrCl > 30 mL/min) AND/OR *Sequential Compression Device (SCD) 5 or more Highest Order ONE of the following medications: *Heparin 5000 units SQ TID (Preferred with Epidurals) *Enoxaparin/Lovenox 40 mg SQ daily (WT < 150 kg, CrCl > 30 mL/min) *Enoxaparin/Lovenox 30 mg SQ daily (WT < 150 kg, CrCl > 10-29 mL/min) *Enoxaparin/Lovenox 30 mg SQ BID (WT < 150 kg, CrCl > 30 mL/min) AND *Sequential Compression Device (SCD) Assessment and Plan - Assessment (1) Upper extremity pain Code(s): M79.603 - Pain in arm, unspecified Status: Acute Onset Date: ~12/06 Plan: Patient has arm pain and weakness very suggestive of neurologic etiology. She has known degenerative spine disease with spinal stenosis in the lower back and so further evaluation of her cervical and thoracic spine will be carried out on this admission. (2) Asthma Code(s): J45.909 - Unspecified asthma, uncomplicated Status: Chronic Plan: We will continue with present formal therapy with no change (3) Chest pain Code(s): R07.9 - Chest pain, unspecified Status: Acute Plan: Patient's current chest pain is related to the pain she is experiencing in her left arm which is noncardiac in etiology. However she has been admitted to the chest pain center for evaluation and will be evaluated by standard chest pain center protocol prior to discharge - Attending Attestation The exam, history, and the me I reviewed and agree with the findings presented. I attest that I had a [id number] encounter with the patient on the same day , and personally performed and documented my assessment and findings in the medical record. (1) Upper extremity pain Qualifiers: Laterality: bilateral (2) Asthma Qualifiers: Asthma severity: mild (3) Chest pain Qualifiers: Chest pain type: unspecified Qualified Code(s): R07.9 - Chest pain, unspecified
--- NOTE | 2017-12-21 16:52 | CT ---
EXAM DATE: 12/21/2017 4:46 PM EDT AGE/SEX: 47 years / Female INDICATIONS: Left arm pain for one week. CLINICAL DATA: This is the patient's initial encounter. Patient reports that signs and symptoms have been present for 1 week and indicates a pain score of 6/10. MEDICAL/SURGICAL HISTORY: Asthma. Tubal ligation. RADIATION DOSE: 22.75 CTDI (mGy) ; Patient body habitus COMPARISON: No prior exams available for comparison. TECHNIQUE: Contiguous axial images were acquired using a multirow detector CT scanner without contra st. Multiplanar reconstruction in the sagittal and coronal planes was performed. Using automated exp osure control and adjustment of the mA and/or kV according to patient size, radiation dose was kept a s low as reasonably achievable to obtain optimal diagnostic quality images. DICOM format image data is available electronically for review and comparison. FINDINGS: Vertebrae: Normal vertebral body height. There is a mild scoliosis. Discs: There mild degenerative disc changes with small anterior spurs throughout the mid tho racic spine. The disc space heights are fairly well-preserved. Alignment: Normal. No subluxation. T1 - T2: Normal. T2 - T3: The thecal sac has a normal diameter. No evidence of disc bulge or protrusion. T3 - T4: The thecal sac has a normal diameter. No evidence of disc bulge or protrusion. T4 - T5: The thecal sac has a normal diameter. No evidence of disc bulge or protrusion. T5 - T6: The thecal sac has a normal diameter. No evidence of disc bulge or protrusion. T6 - T7: The thecal sac has a normal diameter. No evidence of disc bulge or protrusion. T7 - T8: The thecal sac has a normal diameter. No evidence of disc bulge or protrusion. T8 - T9: The thecal sac has a normal diameter. No evidence of disc bulge or protrusion. T9 - T10: The thecal sac has a normal diameter. No evidence of disc bulge or protrusion. T10 - T11: The thecal sac has a normal diameter. No evidence of disc bulge or protrusion. T11 - T12: The thecal sac has a normal diameter. No evidence of disc bulge or protrusion. T12 - L1: The thecal sac has a normal diameter. No evidence of disc bulge or protrusion. CONCLUSION: 1. Mild degenerative disc changes and scoliosis. 2. No evidence of disc protrusion. Electronically signed by: Brandon Anderson MD 12/21/2017 4:50 PM EDT
[2017-12-21 17:20] LABS: Creatine Kinase 119 U/L (26-192)
[2017-12-21 19:39] LABS: Creatine Kinase 121 U/L (26-192)
[2017-12-22] MEDS ORDERED: Regadenoson Inj 0.4 MG/5 ML Syringe IV.PUSH ONE (09:44)
--- NOTE | 2017-12-22 11:35 | NM ---
EXAM DATE: 12/22/2017 11:24 AM EDT AGE/SEX: 47 years / Female INDICATIONS:Angina. . Chest pain. CLINICAL DATA: This is the patient's initial encounter. Patient reports that signs and symptoms have been present for 1 day and indicates a pain score of 0/10. MEDICAL/SURGICAL HISTORY: Asthma. Tubal ligation. COMPARISON: No prior exams available for comparison. DOSE: 11 mCi Tc 99m Myoview at rest 35 mCi [id number] at stress 0.4 mg Lexiscan STRESS SYMPTOMS: Dyspnea, chest pressure and headache. EJECTION FRACTION: 66 % TECHNIQUE: The patient underwent pharmacologic stress with infusion of prescribed dose. Continuous ECG tracing was monitored during stress. Gated SPECT imaging was performed after stress and conventi onal SPECT imaging was performed at rest. The examination was performed on a SPECT/CT scanner, both attenuation and non-corrected datasets were reviewed. FINDINGS: Distribution: The maximum perfused segment at stress is in the anterior lateral wall Perfusion Study: The pattern of perfusion at stress is within normal limits. Gated Study: There are intact wall motion and wall thickening without hypokinetic or dyskinetic segm ents. The ejection fraction is calculated at 66%. RISK CATEGORY: Low (<1% Annual Motality Rate) CONCLUSION: 1. Negative for stress-induced ischemia Electronically signed by: Temo Curtis MD 12/22/2017 11:33 AM EDT
--- NOTE | 2017-12-22 13:55 | ECG ---
Date Performed: 12/21/2017 Time Performed: 18:32:16 PTAGE: 47 years EKG: Sinus rhythm POSSIBLE RIGHT VENTRICULAR CONDUCTION DELAY BORDERLINE ECG PREVIOUS TRACING : 12/21/2017 15.34 Since previous tracing, no significant change noted DOCTOR: Burt Barrios Interpretating Date/Time 12/22/2017 13:54:09
--- NOTE | 2017-12-22 13:55 | ECG ---
Date Performed: 12/21/2017 Time Performed: 15:34:00 PTAGE: 47 years EKG: Sinus rhythm POSSIBLE RIGHT VENTRICULAR CONDUCTION DELAY BORDERLINE ECG NO PREVIOUS TRACING DOCTOR: Burt Barrios Interpretating Date/Time 12/22/2017 13:54:22
--- NOTE | 2017-12-22 13:56 | ECG ---
Date Performed: 12/21/2017 Time Performed: 12:06:26 PTAGE: 47 years EKG: Sinus rhythm BORDERLINE LEFT AXIS DEVIATION BORDERLINE ECG PREVIOUS TRACING : 06/29/2016 07.47 Since previous tracing, no significant change noted DOCTOR: Burt Barrios Interpretating Date/Time 12/22/2017 13:54:41
--- NOTE | 2017-12-22 13:57 | TR ---
Date Performed: 12/22/2017 Time Performed: 10:08:03 DOCTOR: Burt Barrios DRUG LIST: CLINICAL HISTORY: CHEST PAIN REASON FOR TEST: CHEST PAIN REASON FOR ENDING: OBSERVATION: CONCLUSION: COMMENTS: Lexiscan stress test was performed under standard four minute protocol. Radionuclide was injected one minute prior to ending the test. No electrocardiographic abormalities were present t o suggest ischemia. Nuclear imaging and interpretation are pending.
== END 2017-12-22 15:01 | disposition home or self-care (01) ==
LOC: NEPE 11:10 → NEDA 11:10 → NEPFCDU 15:00
PROVIDERS: ADMIT Internal Medicine Interventional Cardiology; ATTEND Internal Medicine Interventional Cardiology